=== PATIENT | male | born 1975 | race Caucasian/White ===

== ENCOUNTER 2023-04-25 10:23 | Outpatient (CLI) | payer OTHER, SELFPAY | END 2023-04-25 10:24 | disposition home or self-care (01) | PROVIDERS: PCP Physician Assistant Medical; Visit Provider Family Medicine | DX: I10 Essential (primary) hypertension (principal); I21.9 Acute myocardial infarction, unspecified; E78.00 Pure hypercholesterolemia, unspecified | CPT/HCPCS: 80061; 80076 ==

== ENCOUNTER 2024-11-06 13:11 | Outpatient (CLI) | payer OTHER, SELFPAY | END 2024-11-06 13:12 | disposition home or self-care (01) | PROVIDERS: PCP Physician Assistant Medical; Visit Provider Nurse Practitioner Family | DX: E78.5 Hyperlipidemia, unspecified (principal); I10 Essential (primary) hypertension | CPT/HCPCS: 80053; 80061 ==

== ENCOUNTER 2024-11-28 09:08 | Outpatient (CLI) | payer OTHER, SELFPAY ==
--- NOTE | 2024-11-28 10:27 | W.ANESCHARGE ---
Anesthesia Charges Start Date/Time Anesthesia Start Date: 11/28/24 Anesthesia Start Time: 10:04 Stop Date/Time Anesthesia Stop Date: 11/28/24 Anesthesia Stop Time: 10:43 Coding CPT Codes CPT Codes: ANES LWR INTST NDSC NOS - [id number] ([id number]) P3 - PATIENT W/SEVERE SYS DISEASE, QK - PHOTOVOLTAIC TECHNICIAN 2-4 CNCRNT ANES PROC, QX - PRESS LOADER SVC W/ MD MED DIRECTION
--- NOTE | 2024-11-28 10:27 | P.ANES_ITS ---
Anesthesia Charges Start Date/Time Anesthesia Start Date: 11/28/24 Anesthesia Start Time: 10:04 Stop Date/Time Anesthesia Stop Date: 11/28/24 Anesthesia Stop Time: 10:43 Coding CPT Codes CPT Codes: ANES LWR INTST NDSC NOS - [id number] ([id number]) P3 - PATIENT W/SEVERE SYS DISEASE, QK - SLITTER AND REWINDER 2-4 CNCRNT ANES PROC, QX - FRUIT WASHER SVC W/ MD MED DIRECTION
--- NOTE | 2024-11-28 10:51 | P.ANES_ITS ---
Anesthesia Charges Start Date/Time Anesthesia Start Date: 11/28/24 Anesthesia Start Time: 10:04 Stop Date/Time Anesthesia Stop Date: 11/28/24 Anesthesia Stop Time: 10:43 Coding CPT Codes CPT Codes: ANES LWR INTST NDSC NOS - [id number] ([id number]) P3 - PATIENT W/SEVERE SYS DISEASE, QX - SEMI AUTOMATIC SEWING MACHINE OPERATOR SVC W/ MD MED DIRECTION, QK - COMPUTER SYSTEMS SECURITY ANALYST 2-4 CNCRNT ANES PROC
--- NOTE | 2024-11-28 10:51 | W.ANESCHARGE ---
Anesthesia Charges Start Date/Time Anesthesia Start Date: 11/28/24 Anesthesia Start Time: 10:04 Stop Date/Time Anesthesia Stop Date: 11/28/24 Anesthesia Stop Time: 10:43 Coding CPT Codes CPT Codes: ANES LWR INTST NDSC NOS - [id number] ([id number]) P3 - PATIENT W/SEVERE SYS DISEASE, QX - DOPER SVC W/ MD MED DIRECTION, QK - [place] TOWER LOADER 2-4 CNCRNT ANES PROC
== END 2024-11-28 09:09 | disposition home or self-care (01) ==
LOC: OP CLINIC 09:09
PROVIDERS: PCP Nurse Practitioner Family; Visit Provider Surgery
DX: Z12.11 Encounter for screening for malignant neoplasm of colon (principal); D12.4 Benign neoplasm of descending colon; D12.8 Benign neoplasm of rectum
CPT/HCPCS: 00811; 45380; 45385; 88305; J2704

== ENCOUNTER 2024-11-30 20:53 | Outpatient (CLI) | payer OTHER, SELFPAY ==
--- NOTE | 2024-12-24 12:30 | W.PM.SLEEP ---
Sleep Study Details Details Interpreting Provider: Geeta Date of Sleep Study: 11/30/24 Sleep Study Details: STUDY TYPE:? Hospital-based, attended, CPAP titration ? BMI:? 32 ORDERING PROVIDER:Kassandra Gardner INDICATION:? Concern about sleep apnea ? SLEEP SUMMARY:? 298.5 minutes total sleep time RESPIRATORY SUMMARY:? AHI 34.7, note that the entire does diagnostic portion of study was done in the nonsupine position. Nonsupine REM sleep AHI was 46.7. CPAP titration was performed of to a pressure of 14 but AHI remained elevated. Best pressure appeared to be 8 which included REM stage sleep and an AHI of 4.9. The REM stage sleep was in the nonsupine position PERIODIC LIMB MOVEMENTS OF SLEEP:? Index 63.8, index with arousal 1.5 CARDIAC:? Awake 80, asleep 75. No arrhythmias noted IMPRESSION:? Severe obstructive sleep apnea with REM dependency. CPAP titration was incomplete. RECOMMENDATION: Could trial an AutoSet CPAP with close follow-up. If that is not successful would recommend an in-lab titration for bilevel.
== END 2024-11-30 20:54 | disposition home or self-care (01) ==
LOC: SLEEP 20:54
PROVIDERS: PCP Nurse Practitioner Family; Visit Provider Nurse Practitioner Family
DX: G47.33 Obstructive sleep apnea (adult) (pediatric) (principal)
CPT/HCPCS: 95811